=== PATIENT | male | born 1960 | race Caucasian/White ===

== ENCOUNTER 2016-06-17 05:47 | Inpatient (IN) | payer BC ==
--- NOTE | 2016-06-02 19:12 | HP ---
HISTORY AND PHYSICAL: DATE OF ADMISSION/SURGERY: 06/17/16 He is coming into the hospital 06/17/16 for a left total knee replacement. CHIEF COMPLAINT: Left knee pain. HISTORY OF PRESENT ILLNESS: This 56-year-old man has had left knee problems over the last couple of years. He has severe arthritis of the knee. It has been no longer responsive to nonoperative care and a left total knee replacement is recommended. He is cared for by Dr. Jonathon Clifton. PAST MEDICAL HISTORY: The patient's medical problems include hypertension, sleep apnea including a breathing device at night, insulin-dependent diabetes and he had bariatric surgery 3 months ago. Hi s weight is down from 280 in June 2015 and he is now 228, down 30 pounds since his bariatric lala jane. DAILY MEDICATIONS: 1. Losartan 100 mg each day. 2. Amlodipine 5 mg twice a day. 3. Thyroid replacement 150 mcg each day of the week and he does not take it on Thursday and Thursday. 4. Lantus insulin 20 units each day. ALLERGIES: No allergies. No history of heart attack, DVT, or pulmonary embolism. SOCIAL HISTORY: He is not a smoker. He did give up chewing tobacco recently. Minimal alcoholic con sumption. No bleeding tendencies. PHYSICAL EXAM: GENERAL: He is overweight, not acutely distressed. VITAL SIGNS: His height 5 feet 7 inch, weight 228 pounds. Blood pressure 146/82, the pulse is 73, respirations 19. HEENT: The head is NC/AT. LUNGS: Clear bilaterally. HEART: Regular, S1, S2, normal. No murmurs or gallops. EXTREMITIES: Left knee examination; varus, stable MCL and LCL, normal Bonnie, posterior drawer ext ension -2 degrees, flexion 95 degrees. Small effusion. The joint line is nontender medially and la terally. The knee is nontender anteriorly and posteriorly. The thigh and calf are soft. Neurovasc ularly the foot is intact. NEUROLOGIC: The cranial nerves are grossly intact. RADIOGRAPHIC REVIEW: The knee radiographs show that the left knee has severe medial arthritis with [id number] sclerosis, osteophyte formation. IMPRESSION: Severe arthritis of the left knee. PLAN: Left total knee replacement. The goals, risks, and complications of the surgical care were r eviewed by him today and he acknowledged these. [id number]/[facility] #: [id number]
[2016-06-17] MEDS ORDERED: Buffered Lidocaine 1% SYR 3ML* 3 ML/SYR SYRINGE INTRADERM ONE (06:00)
[2016-06-17] MEDS ORDERED: Famotidine IV* 10 MG/ML 2 ML (20 mg) IV ONE (06:00)
[2016-06-17] MEDS ORDERED: Metoclopramide IV* 5 MG/ML 2 ML VIAL IV SLOW PU ONE (06:00)
[2016-06-17] MEDS ORDERED: Buffered Lidocaine 1% SYR 3ML* 3 ML/SYR SYRINGE ONE (06:08)
[2016-06-17] MEDS ORDERED: ceFAZolin 2 GM PREMIX (*) 2 GM/50 ML BAG IVPB ONE (06:08)
[2016-06-17] MEDS ORDERED: Famotidine IV* 10 MG/ML 2 ML (20 mg) ONE (06:08)
[2016-06-17] MEDS ORDERED: Metoclopramide IV* 5 MG/ML 2 ML VIAL ONE (06:08)
[2016-06-17] MEDS ORDERED: Midazolam* 1 MG/ML 5 ML VIAL (5 MG) ONE (06:53)
[2016-06-17] MEDS ORDERED: fentaNYL* 50 MCG/ML 2 ML VIAL (100 MCG VIAL) ONE (06:53)
[2016-06-17] MEDS ORDERED: Morphine PF AMP (0.5MG/ML)* 5 MG/10 ML AMP ONE (06:54)
[2016-06-17] MEDS ORDERED: Dexmedetomidine* 200 MCG/2 ML 2 ML VIAL ONE (07:01)
[2016-06-17] MEDS ORDERED: Bupivacaine 0.5% SDV PF* 30 ML VIAL ONE (07:01)
[2016-06-17] MEDS ORDERED: Propofol* 10 MG/ML 20 ML BTL IV PUSH ONE ×2 (07:01→09:48)
[2016-06-17] MEDS ORDERED: fentaNYL* 50 MCG/ML 2 ML VIAL (100 MCG VIAL) IV PRN (07:12)
[2016-06-17] MEDS ORDERED: PROCHLORPERAZINE INJ 5 MG/ML 2 ML VIAL IV PRN ×2 (07:12→10:56)
[2016-06-17] MEDS ORDERED: Scopolamine 1.5 mg* PATCH TRANSDERM PRN (07:12)
[2016-06-17] MEDS ORDERED: Ondansetron INJ* 2 MG/ML VIAL IV PRN ×2 (07:12→10:56)
[2016-06-17] MEDS ORDERED: DiMENhydriNATE IV* 50 MG/ML VIAL IV PUSH PRN ×2 (07:12→10:56)
[2016-06-17] MEDS ORDERED: Bupivacaine 0.5% W/EPI SDV* 30 ML VIAL ONE (09:05)
[2016-06-17] MEDS ORDERED: Nalbuphine* 20 MG/ML 1 ML VIAL IV PRN (10:56)
[2016-06-17] MEDS ORDERED: Naloxone* 0.4 MG/ML 1 ML VIAL IV PRN (10:56)
[2016-06-17] MEDS ORDERED: Acetaminophen TAB* 325 MG PO PRN (10:57)
[2016-06-17] MEDS ORDERED: Polyethylene Glycol 3350* 17 GM PACKET PO PRN (11:04)
[2016-06-17] MEDS ORDERED: traZODone TAB* 50 MG TAB PO PRN (11:04)
[2016-06-17] MEDS ORDERED: Bisacodyl SUPP* 10 MG SUPP PR PRN (11:04)
--- NOTE | 2016-06-17 11:42 | RAD ---
INDICATION: Postop left total knee replacement COMPARISON: April 23, 2016 TECHNIQUE: 2 portable views were obtained. FINDINGS: There is left knee arthroplasty. Both femoral and tibial components appear well seated. There is a cooling jacket. There are anterior skin katalina. IMPRESSION: POSTOPERATIVE LEFT TOTAL KNEE REPLACEMENT
[2016-06-17] MEDS ORDERED: ceFAZolin 1 GM in Dextrose (*) 1 GM/50 ML BAG IVPB SCH (12:00)
[2016-06-17] MEDS ORDERED: Dextrose 50% Syringe 50 ML* 25 GM/50 ML SYRINGE IV PUSH PRN (13:41)
[2016-06-17] MEDS: diPHENhydraMINE IV* 50 MG/ML 1 ml VIAL (BENADRYL) IV PRN (15:09)
[2016-06-17] MEDS: ceFAZolin 1 GM in Dextrose (*) 1 GM/50 ML BAG IVPB SCH (15:43)
--- NOTE | 2016-06-17 17:32 | CONS ---
CONSULTATION REPORT: DATE OF CONSULT: 06/17/16 PRIMARY CARE PROVIDER: Dr. Clifton. REQUESTING PHYSICIAN FOR CONSULT: Dr. Maritns. MY ATTENDING PHYSICIAN WHILE IN THE HOSPITAL: Dr. Danielle Calle (report dictated by Jose Jaquez NP). REASON FOR CONSULT: Medical evaluation of comorbid medical problems and medical management. HISTORY OF PRESENT ILLNESS: I refer you to Dr. Martins's H and P for further details. In short, Mr. Coleman is a 56-year-old male patient who has a history of arthritis, hypertension, CASANDRA, diabetes, hypothyroidism, hyperlipidemia, and history of nephrolithiasis. He presented to the outpatient setting to Dr. Martins 's services as he has had persistent debilitating left knee pain and that he was failing conservative therapy. Ultimately, it was felt that he would benefit from replacement which he underwent today. He was evaluated in the postoperative setting. He said he is feeling well. His pain is controlled. He feels pain at the incision site only, but it is tolerable. He denies having any chest pain or shortness of breath. Says he does not feel nauseated. Says he is not having any abdominal pain. He denies having any lightheadedness. He says that he is feeling fairly well at this point in time. He denies any shortness of breath and denies any numbness or tingling in the lower extremities on the left side, but because of his medical complexity, the hospitalist service was asked to evaluate for consult. PAST MEDICAL HISTORY: Significant for: 1. Arthritis. 2. Hypertension. 3. CASANDRA. 4. Diabetes. 5. Hypothyroidism. 6. Hyperlipidemia. 7. Nephrolithiasis. PAST SURGICAL HISTORY: 1. He has had a left total knee replacement done today. 2. He has had a Christina-en-Y surgery done in January 2016. 3. Laparoscopic cholecystectomy. 4. He has had right and left knee arthroscopies. MEDICATIONS: Home medications according to the preop list obtained include: 1. Probiotic 1 tablet p.o. at bedtime. 2. Losartan 100 mg daily. 3. Synthroid 150 mcg daily. 4. Lantus 20 units subcu at bedtime. 5. Ibuprofen 800 mg p.o. take as directed. 6. Norvasc 5 mg p.o. b.i.d. ALLERGIES TO MEDICATIONS: Include no known drug allergies. FAMILY HISTORY: Mother had a history of pancreatic cancer. Father had a history of lung cancer. SOCIAL HISTORY: He does not smoke. He rarely drinks alcohol. He is , with children. Surrogate decision maker is his . REVIEW OF SYSTEMS: There is no documented fever. He denied having any significant weight change. There was no double vision. There is no ear discharge. He denies having any rhinorrhea. There is no sore throat. There is no thyroid enlargement. Denies having any chest pain. There is no orthopnea. No nocturnal dyspnea. There is no abdominal pain. He denies having any nausea or vomiting. He denies any dysuria, no frequency. No loss of consciousness. No pruritus. No skin ulcerations. Review of 14 systems completed, all others negative. PHYSICAL EXAM: Vital signs of blood pressure of 113/64, pulse 55, respirations 16, O2 sat 96%, temperature 96.8. General: At this time, Mr. Coleman is a 56- year-old male patient. He appears to be well nourished, well developed. He is sitting in the postoperative bed. He does not appear to be in any acute distress. HEENT: Head: Atraumatic, normocephalic. Eyes: EOMs intact. Sclerae are anicteric and not pale. Throat: Oral mucosa appears to be moist. No oropharyngeal erythema. Neck: Supple. Heart: Sounds S1, S2. Regular rate and rhythm. No murmurs, rubs, or gallops. Lungs: Clear to auscultation bilaterally. No wheezes, rales, or rhonchi. His abdomen was soft, flat. Bowel sounds hypoactive. Nontender. Extremities: Pulses 2+ throughout. Distal CSM checks intact in the left lower extremity. He can move his upper extremities with 5/5 strength. He has limited range of motion to the left leg and it is obviously the operative leg. Neurologically, he is awake, he is alert , and he is oriented x3. His tongue is midline. His endodontic assistant are equal. He had no gross focal deficits. His skin is intact. DIAGNOSTIC STUDIES/LAB DATA: His labs preoperative revealed WBC of 7.3, RBC of 4.96, hemoglobin 14.9, hematocrit of 44, platelet count of 250. INR was 0.98. Sodium 139, potassium 3.4, chloride of 101, bicarb 34, BUN 12, creatinine of 0.58, glucose 161. Chest x-ray showed no active cardiopulmonary disease. He had an EKG as well preop which showed a normal sinus rhythm, right bundle branch block. He did have a PVC noted. Old medical records were reviewed. ASSESSMENT AND PLAN: Mr. Coleman is a 56-year-old male patient coming into the orthopedic services for an elective left total knee. Hospitalist service was asked to evaluate in consult to help manage his other medical problems. Recommendations at this point are: 1. Status post left total knee replacement: I will defer the management of this to Dr. Martins and his team. 2. Osteoarthritis: Defer to his primary. Continue current medical regimen. 3. Hypertension: His blood pressure has been in the low 100s systolically. So , I am going to hold his losartan and amlodipine. We can reintroduce these slowly as needed. 4. Obstructive sleep apnea: Continue his CPAP. We will continue to do pulse ox overnight tonight. 5. Diabetes: We will continue lispro sliding scale. In addition to this, continue Lantus. 6. Hypothyroidism: Continue his Synthroid. 7. Hyperlipidemia: Continue current medical regimen. 8. History of nephrolithiasis: Not an active issue. Follow up with primary. 9. DVT prophylaxis: I will defer to the primary team. 10. Fluids, electrolytes, and nutrition: He can have a consistent carbohydrate diet. 11. Code status: Full code. TIME SPENT: On the admission was approximately 60 minutes; greater than half the time was spent [id number] with the patient obtaining my history and physical, other half the time spent going over the plan of care with the patient and implementing plan of care. I did discuss the plan of care with my attending, Dr. Calle; she is in agreement. JOSE JAQUEZ NP CC: Dr. Clifton; Dr. Martins* [id number]/[facility] #: [id number] [facility] HOSPITALShania
[2016-06-17] MEDS: Insulin LISPRO* 1 UNITS UNIT SUBCUT SCH (18:39)
[2016-06-17] MEDS: Ferrous Sulfate TAB* 325 MG PO SCH (20:06)
[2016-06-17] MEDS: Docusate CAP* 100 MG PO SCH (20:06)
[2016-06-17] MEDS: oxyCODONE/Acetamin 5/325 MG* TAB PO PRN (20:07)
[2016-06-17] MEDS: Lactobacillus Acidophilu (GG)* 1 CAP CAP PO SCH (20:07)
[2016-06-17] MEDS: Insulin GLARGINE(*) 1 UNITS UNIT SUBCUT SCH (20:09)
[2016-06-17] MEDS ORDERED: amLODIPine TAB* 5 MG PO SCH (21:00)
--- NOTE | 2016-06-18 00:34 | OP ---
DATE OF OPERATION: 06/17/16 - ROOM #346 DATE OF : 58 SURGICAL CARE: Left total knee replacement. SURGEON: Fabien Martins MD ASSISTANTS: 1. THI Sanchez - Grout Machine Operator. 2. Dottie Sethi, outboard technician. ANESTHESIOLOGIST: Dr. Salvador Bahena. ANESTHESIA: Left saphenous nerve block and spinal with Duramorph, IV sedation. PRE-OP DIAGNOSIS: Severe arthritis of the left knee. POST-OP DIAGNOSIS: Severe arthritis of the left knee. OPERATIVE PROCEDURE: Left total knee replacement. COMPONENTS UTILIZED: Paola Persona knee was utilized, a size 8 femur, a size E tibia, a 10 articular surface, and a 35 patella. COMPLICATIONS: There were no complications. DRAINS: Two blood collection drains in the left knee at the end of the case. BLOOD LOSS: 250 mL. REPLACEMENT: Crystalloid fluids. OPERATIVE INDICATIONS: Severe arthritis of the left knee, it is bone on bone medially. He has various malalignment. He has been nonresponsive to nonoperative care and a knee replacement was recommended. The patient's other medical problems include insulin-dependent diabetes, sleep apnea, hypertension, recent bariatric surgery, and thyroid replacement. DESCRIPTION OF PROCEDURE: The patient was brought to the operating room and placed on the operating room table in a supine position. Following the administration of the block on the left thigh and the spinal and a Galloway catheter was inserted, the left proximal thigh was wrapped with a tourniquet. The left leg was prepped from the tourniquet to the tips of the toes after a preliminary chlorhexidine prep of the thigh, knee, and leg. We did our universal protocol time-out, confirming José Miguel Jared and a plan for left total knee replacement. We all agreed and we proceeded. The skin incision went from 2 fingerbreadths proximal to superior pole of the patella to the medial aspect of the tibial tubercle. The skin and subcu divided down to the prepatellar bursa. The prepatellar bursa was traversed and the knee was then entered medial parapatellar dividing the quad tendon at the junction of the rectus femoris and the vastus medialis muscle, staying as close to the muscle as possible on the medial side. The knee had clear goldish synovial fluid. The anteromedial soft tissues on the tibia were divided down to the bone just medial to the tibial tubercle going from the joint line distally and the medial side was elevated subperiosteally going around to the deep MCL and into the posteromedial corner of the knee to affect some medial release. The remains of the anterior horn of the medial meniscus were excised. The infrapatellar fat pad was excised, the synovium around the patella was removed. The patient had complete eburnation of the medial femoral condyle, medial tibial plateau, large osteophytes, smaller osteophytes on the intercondylar notch which were excised. The ACL and PCL were uplifted from their femoral origins. The tibia was made so it could be subluxated forward from under the femur. The lateral meniscus was carefully excised, carefully staying out of the region of the lateral geniculate. The distal anterior femur was exposed subperiosteally for referencing and measuring after removing osteophytes from the superior trochlea. The proximal tibial cut was made first, our goal here was to have a tibial surface that would be perpendicular to the long axis of the tibia and have a slight posterior slope. The femoral intramedullary canal was opened with a drill. The canal was suctioned to discourage embolization and the femur was measured. The distal femoral cutting guide was applied with 6 degrees of valgus #1 for a small flexion contracture. This cut was completed. The femur was measured for an 8, and the anterior, posterior, and chamfering cuts were completed for the size 8 femur. At this point, we cleaned, finished removal of the posterior horn of the medial meniscus, the PCL, osteophytes on the medial femoral condyle, posterior horn of lateral meniscus, and great care was taken to preserve the MCL during this part of the case. Working posteriorly, careful hemostasis was checked and achieved. Once everything was cleaned out posteriorly, we had good ligamentous balance in 90 degrees of flexion and in full extension with a 10-mm block. The femur was completed with the intracondylar cut out for the size 8. The tibia was completed for a size E. The knee was articulated and extended with the E tibia , 10 articular surface and the 8 femur with full knee extension, stable ligaments in extension, nice knee alignment in extension, and stable ligaments in 90 degrees of flexion. The patella was cut flat, a 35 was chosen. Three drill holes were made, these were undercut and a lateral release was not necessary. A femoral plug was inserted after cleaning the femur x5-6 with saline and the plug ended up being too small and it was removed. The leg was then exsanguinated. The tourniquet elevated to 275. All the bony surfaces were cleaned down in extension, once again checking to see that we had hemostasis on the lateral geniculate. This was 2 to 3 L of pulse saline. The knee was then flexed, retractors were put into place and the bony surface was again cleaned with pulse saline, tibia, patella and femur. All surfaces were then dried. The cement was mixed and the components were cemented into position. The patella followed by the tibia followed by the femur, each was impacted. Excess cement was removed and the knee was articulated and extended during the final hardening. After this, once again, all excess cement was removed including some in the intercondylar notch and posteriorly. The tourniquet was deflated. Hemostasis checked and achieved utilizing electrocautery and careful hemostasis was achieved during closure. We irrigated several times with saline during closure as well. The pericapsular tissues were infiltrated with Marcaine 0.5% with epinephrine posteromedial, medial, anterolateral during closure as well. The quad mechanism closed with interrupted #1 Polysorbs in [id number] fashion. The same with the medial retinaculum. More distally we used 0 Polysorb. The drains were brought out superolateral, suprapatellar pouch. On the deep fascia and bursa, the 0 Polysorb was utilized and then on the superficial subcu, 3-0 Polysorb, and then katalina on the skin. The skin was washed and dried and covered with Betadine-soaked release followed by sterile gauze. The drains were dressed in the same manner and then sterile Webril. A cryotherapy cuff was applied followed by a couple of more ABD pads, further Webril and then a 6- inch Aj bandage loosely applied. The patient dorsalis pedis pulse was 2+ at the end of the case, and the patient was returned to the recovery room in stable and satisfactory condition, having tolerated the procedure very well. CC: Jonathon Clifton MD, [facility] * [id number]/[facility] #: [id number] MTDD
[2016-06-18] MEDS: ceFAZolin 1 GM in Dextrose (*) 1 GM/50 ML BAG IVPB SCH ×2 (00:45→08:00)
[2016-06-18] MEDS: oxyCODONE/Acetamin 5/325 MG* TAB PO PRN ×4 (00:47→21:40)
[2016-06-18] MEDS: diPHENhydraMINE IV* 50 MG/ML 1 ml VIAL (BENADRYL) IV PRN (02:50)
[2016-06-18] MEDS ORDERED: Ondansetron INJ* 2 MG/ML VIAL IV PRN (02:56)
[2016-06-18] MEDS ORDERED: oxyCODONE/Acetamin 5/325 MG* TAB PO PRN (02:56)
[2016-06-18] MEDS ORDERED: diPHENhydraMINE IV* 50 MG/ML 1 ml VIAL (BENADRYL) IV PRN (02:56)
[2016-06-18] MEDS: oxyCODONE TAB* 5 MG TAB PO PRN ×3 (04:30→17:13)
[2016-06-18] MEDS: Levothyroxine TAB* 150 MCG TAB PO SCH (06:08)
[2016-06-18 06:47] LABS: Hematocrit 33 % (42-52); Hemoglobin 11.6 g/dl (14.0-18.0); Mean Corpuscular HGB Conc 35 g/dl (31-36); Mean Corpuscular Hemoglobin 30 pg (27-31); Mean Corpuscular Volume 87 fL (80-94); Mean Platelet Volume 7 um3 (7.4-10.4); Red Blood Count 3.84 10^6/ul (4.0-5.4); Red Cell Distribution Width 14 % (10.5-15); White Blood Count 11.7 10^3/ul (3.5-10.8)
[2016-06-18 06:59] LABS: BUN/Creatinine Ratio 13.6 (8-20); Calcium 8.2 mg/dL (8.6-10.3); EGFR Non-African American 124.4 (>60); Potassium 2.9 mmol/L (3.5-5.0)
[2016-06-18] MEDS ORDERED: Magnesium Sulfate 2 GM IV* 2 GM/50 ML BAG IVPB ONE (07:36)
[2016-06-18] MEDS: Potassium Chlor TAB* 20 MEQ TAB.ER PO SCH ×3 (07:55→19:46)
[2016-06-18] MEDS: Insulin LISPRO* 1 UNITS UNIT SUBCUT SCH ×3 (07:57→17:24)
[2016-06-18] MEDS: Docusate CAP* 100 MG PO SCH ×2 (07:59→19:45)
[2016-06-18] MEDS: Aspirin TAB* 325 MG PO SCH (07:59)
[2016-06-18] MEDS: Ferrous Sulfate TAB* 325 MG PO SCH ×2 (07:59→19:45)
[2016-06-18] MEDS: Vitamin THERAPEUTIC TAB PO SCH (07:59)
[2016-06-18 08:18] LABS: Magnesium 1.6 mg/dL (1.9-2.7)
[2016-06-18] MEDS ORDERED: Losartan TAB* 25 MG PO SCH (09:00)
[2016-06-18 14:49] LABS: BUN/Creatinine Ratio 15.4 (8-20); Calcium 8.6 mg/dL (8.6-10.3); EGFR African American 162.8 (>60); EGFR Non-African American 126.6 (>60); Magnesium 1.9 mg/dL (1.9-2.7); Potassium 3.7 mmol/L (3.5-5.0)
--- NOTE | 2016-06-18 18:20 | PN ---
Subjective Date of Service: 06/18/16 Interval History: This is a 56 yo male who underwent L TKR by Dr Martins yesterday. Hospitalists have been asked to consult for medical co-management. Patient offers no acute complaints. His pain is well controlled. Working with PT. Denies abd pain, n/ v. Denies CP, SOB. Objective Active Medications: Acetaminophen (Tylenol Tab*) 650 mg PO Q4H PRN PRN Reason: PAIN OR TEMPERATURE Last Admin: 06/17/16 18:00 Dose: 650 mg Aspirin (Aspirin Tab*) 325 mg PO DAILY [facility] Last Admin: 06/18/16 07:59 Dose: 325 mg Bisacodyl (Dulcolax Supp*) 10 mg SC DAILY PRN PRN Reason: constipation Dextrose (D50w Syringe 50 Ml*) 12.5 gm IV PUSH .FOR FS < 60 - SS PRN PRN Reason: FS < 60 Diphenhydramine HCl (Benadryl Iv*) 25 mg IV Q6H PRN PRN Reason: itching Docusate Sodium (Colace Cap*) 100 mg PO BID [facility] Last Admin: 06/18/16 07:59 Dose: 100 mg Ferrous Sulfate (Ferrous Sulfate Tab*) 325 mg PO BID [facility] Last Admin: 06/18/16 07:59 Dose: 325 mg Lactated Ringer's (Lactated Ringers 1000 Ml Bag*) 1,000 mls @ 100 mls/hr IV PER RATE [facility] Last Admin: 06/17/16 15:02 Dose: 100 mls/hr Insulin Glargine (Lantus(*)) 20 units SUBCUT BEDTIME [facility] Last Admin: 06/17/16 20:09 Dose: 20 units Insulin Human Lispro (Humalog*) 0 units SUBCUT AC [facility] PRN Reason: Protocol Last Admin: 06/18/16 17:24 Dose: 6 unit Lactobacillus Rhamnosus (Culturelle*) 1 cap PO BEDTIME [facility] Last Admin: 06/17/16 20:07 Dose: 1 cap Lactulose (Lactulose*) 30 ml PO Q6H PRN PRN Reason: constipation Levothyroxine Sodium (Synthroid Tab*) 150 mcg PO 0600 [facility] Last Admin: 06/18/16 06:08 Dose: 150 mcg Magnesium Hydroxide (Milk Of Magnesia Liq*) 30 ml PO Q6H PRN PRN Reason: constipation Morphine Sulfate (Morphine Inj (Syringe)*) 2 mg IV Q2H PRN PRN Reason: PAIN Multivitamins (Theragran Tab*) 1 tab PO DAILY [facility] Last Admin: 06/18/16 07:59 Dose: 1 tab Ondansetron HCl (Zofran Inj*) 4 mg IV Q6H PRN PRN Reason: nausea Oxycodone HCl (Roxycodone Tab*) 10 mg PO Q4H PRN PRN Reason: PAIN - SEVERE Last Admin: 06/18/16 17:13 Dose: 10 mg Oxycodone/Acetaminophen (Percocet 5/325 Tab*) 1 tab PO Q4H PRN PRN Reason: PAIN Oxycodone/Acetaminophen (Percocet 5/325 Tab*) 2 tab PO Q4H PRN PRN Reason: PAIN Last Admin: 06/18/16 13:55 Dose: 2 tab Pharmacy Profile Note (Scopolomine Patch Remove*) 1 note PATCH OFF Q72H ONE Stop: 06/20/16 07:14 Polyethylene Glycol/Electrolytes (Miralax*) 17 gm PO DAILY PRN PRN Reason: Constipation Potassium Chloride (Klor Con Er Tab*) 20 meq PO TID [facility] Stop: 06/18/16 21:01 Last Admin: 06/18/16 13:50 Dose: 20 meq Potassium Chloride (Klor Con Er Tab*) 20 meq PO BID [facility] Trazodone HCl (Desyrel Tab*) 25 mg PO BEDTIME PRN PRN Reason: insomnia Vital Signs: Temp Pulse Resp BP Pulse Ox 99.9 F 98 18 153/82 96 06/18/16 16:01 06/18/16 16:01 06/18/16 17:13 06/18/16 16:01 06/18/16 16:01 Appearance: Well appearing, just finishing with PT Respiratory: Symmetrical Chest Expansion and Respiratory Effort, Clear to Auscultation Cardiovascular: NL Sounds; No Murmurs; No JVD, RRR Abdominal: NL Sounds; No Tenderness; No Distention Extremities: No Edema, - - R knee in brace and surgical dressing Neurological: Alert and Oriented x 3 Result Diagrams: 06/18/16 06:18 06/18/16 14:24 Assess/Plan/Problems-Billing Assessment: This is a 56 yo male with a h/o HTN, CASANDRA, IDDM, hypothyroidism, HLD who is s/p L TKR. Hospitalist group has been consulted for medical comanagement. - Patient Problems (1) Status post total knee replacement Comment: Management per ortho including pain control, DVT prophylaxis and discharge planning (2) Hypokalemia Comment: Replaced orally Repeat labs show improvement Will repeat BMP in am (3) Hypomagnesemia Comment: Replaced IV, repeat labs normal (4) Hypertension Comment: Resume losartan and amlodipine in am (5) Insulin dependent diabetes mellitus Comment: Continue home Lantus dose and cover hyperglycemia with additional SS Humalog (6) Hypothyroidism Comment: Cont levothyroxine (7) Hyperlipidemia Status and Disposition: Discharge planning per ortho surgery. No acute medical concerns. Hospitalist group will continue to follow along.
[2016-06-18] MEDS: Lactobacillus Acidophilu (GG)* 1 CAP CAP PO SCH (19:45)
[2016-06-18] MEDS: Insulin GLARGINE(*) 1 UNITS UNIT SUBCUT SCH (19:46)
[2016-06-18] MEDS: Morphine INJ* 2 MG/ML 1 ML CARPUJECT IV PRN (19:48)
[2016-06-19] MEDS: oxyCODONE TAB* 5 MG TAB PO PRN ×3 (03:00→21:26)
[2016-06-19] MEDS: Levothyroxine TAB* 150 MCG TAB PO SCH (05:30)
[2016-06-19] MEDS: oxyCODONE/Acetamin 5/325 MG* TAB PO PRN ×3 (06:42→17:08)
[2016-06-19] MEDS: Magnesium Hydroxide LIQ* 30 ML UDC PO PRN ×2 (06:43→22:31)
[2016-06-19 07:31] LABS: Hematocrit 36 % (42-52); Hemoglobin 12.6 g/dl (14.0-18.0)
[2016-06-19 07:37] LABS: BUN/Creatinine Ratio 13.8 (8-20); Calcium 8.9 mg/dL (8.6-10.3); EGFR African American 162.8 (>60); EGFR Non-African American 126.6 (>60); Magnesium 1.9 mg/dL (1.9-2.7); Potassium 3.1 mmol/L (3.5-5.0)
[2016-06-19] MEDS: Insulin LISPRO* 1 UNITS UNIT SUBCUT SCH ×3 (08:23→17:16)
[2016-06-19] MEDS: Vitamin THERAPEUTIC TAB PO SCH (08:24)
[2016-06-19] MEDS: Docusate CAP* 100 MG PO SCH ×2 (08:24→21:26)
[2016-06-19] MEDS: Losartan TAB* 25 MG PO SCH (08:24)
[2016-06-19] MEDS: amLODIPine TAB* 5 MG PO SCH (08:24)
[2016-06-19] MEDS: Potassium Chlor TAB* 20 MEQ TAB.ER PO SCH ×2 (08:24→21:27)
[2016-06-19] MEDS: Ferrous Sulfate TAB* 325 MG PO SCH ×2 (08:24→21:27)
[2016-06-19] MEDS: Aspirin TAB* 325 MG PO SCH (08:24)
--- NOTE | 2016-06-19 16:45 | PN ---
Subjective Date of Service: 06/19/16 Interval History: Patient offers no new complaints. Pain is fairly well controlled. Continuing to do well with PT. No CP, SOB, abd pain, n/v. Objective Active Medications: Acetaminophen (Tylenol Tab*) 650 mg PO Q4H PRN PRN Reason: PAIN OR TEMPERATURE Last Admin: 06/17/16 18:00 Dose: 650 mg Amlodipine Besylate (Norvasc Tab*) 5 mg PO DAILY [facility] Last Admin: 06/19/16 08:24 Dose: 5 mg Aspirin (Aspirin Tab*) 325 mg PO DAILY [facility] Last Admin: 06/19/16 08:24 Dose: 325 mg Bisacodyl (Dulcolax Supp*) 10 mg CO DAILY PRN PRN Reason: constipation Dextrose (D50w Syringe 50 Ml*) 12.5 gm IV PUSH .FOR FS < 60 - SS PRN PRN Reason: FS < 60 Diphenhydramine HCl (Benadryl Iv*) 25 mg IV Q6H PRN PRN Reason: itching Docusate Sodium (Colace Cap*) 100 mg PO BID [facility] Last Admin: 06/19/16 08:24 Dose: 100 mg Ferrous Sulfate (Ferrous Sulfate Tab*) 325 mg PO BID [facility] Last Admin: 06/19/16 08:24 Dose: 325 mg Lactated Ringer's (Lactated Ringers 1000 Ml Bag*) 1,000 mls @ 100 mls/hr IV PER RATE [facility] Last Admin: 06/17/16 15:02 Dose: 100 mls/hr Insulin Glargine (Lantus(*)) 25 units SUBCUT BEDTIME [facility] Insulin Human Lispro (Humalog*) 0 units SUBCUT AC [facility] PRN Reason: Protocol Last Admin: 06/19/16 12:14 Dose: 3 unit Lactobacillus Rhamnosus (Culturelle*) 1 cap PO BEDTIME [facility] Last Admin: 06/18/16 19:45 Dose: 1 cap Lactulose (Lactulose*) 30 ml PO Q6H PRN PRN Reason: constipation Last Admin: 06/19/16 14:18 Dose: 30 ml Levothyroxine Sodium (Synthroid Tab*) 150 mcg PO 0600 [facility] Last Admin: 06/19/16 05:30 Dose: 150 mcg Losartan Potassium (Cozaar Tab*) 100 mg PO DAILY [facility] Last Admin: 06/19/16 08:24 Dose: 100 mg Magnesium Hydroxide (Milk Of Magnesia Liq*) 30 ml PO Q6H PRN PRN Reason: constipation Last Admin: 06/19/16 06:43 Dose: 30 ml Morphine Sulfate (Morphine Inj (Syringe)*) 2 mg IV Q2H PRN PRN Reason: PAIN Last Admin: 06/18/16 19:48 Dose: 2 mg Multivitamins (Theragran Tab*) 1 tab PO DAILY [facility] Last Admin: 06/19/16 08:24 Dose: 1 tab Ondansetron HCl (Zofran Inj*) 4 mg IV Q6H PRN PRN Reason: nausea Oxycodone HCl (Roxycodone Tab*) 10 mg PO Q4H PRN PRN Reason: PAIN - SEVERE Last Admin: 06/19/16 09:36 Dose: 10 mg Oxycodone/Acetaminophen (Percocet 5/325 Tab*) 1 tab PO Q4H PRN PRN Reason: PAIN Oxycodone/Acetaminophen (Percocet 5/325 Tab*) 2 tab PO Q4H PRN PRN Reason: PAIN Last Admin: 06/19/16 12:06 Dose: 2 tab Pharmacy Profile Note (Scopolomine Patch Remove*) 1 note PATCH OFF Q72H ONE Stop: 06/20/16 07:14 Polyethylene Glycol/Electrolytes (Miralax*) 17 gm PO DAILY PRN PRN Reason: Constipation Potassium Chloride (Klor Con Er Tab*) 20 meq PO BID [facility] Last Admin: 06/19/16 08:24 Dose: 20 meq Trazodone HCl (Desyrel Tab*) 25 mg PO BEDTIME PRN PRN Reason: insomnia Vital Signs: Temp Pulse Resp BP Pulse Ox 98.2 F 87 20 124/71 99 06/19/16 15:32 06/19/16 15:32 06/19/16 15:32 06/19/16 15:32 06/19/16 16:00 Appearance: Well appearing, NAD Respiratory: Symmetrical Chest Expansion and Respiratory Effort, Clear to Auscultation Cardiovascular: NL Sounds; No Murmurs; No JVD, RRR Abdominal: NL Sounds; No Tenderness; No Distention Extremities: No Edema Skin: No Rash or Ulcers Neurological: Alert and Oriented x 3 Result Diagrams: 06/19/16 06:40 06/19/16 06:40 Assess/Plan/Problems-Billing Assessment: This is a 56 yo male with a h/o HTN, CASANDRA, IDDM, hypothyroidism, HLD who is s/p L TKR. Hospitalist group has been consulted for medical comanagement. - Patient Problems (1) Status post total knee replacement Comment: Management per ortho including pain control, DVT prophylaxis and discharge planning (2) Hypokalemia Comment: Replaced orally yesterday, labs show hyperkalemia again this am Continue oral supplementation, Mg has been replaced He may require chronic supplementation following discharge, perhaps due to malabsorption following his recent Christina en Y Asymptomatic (3) Hypomagnesemia Comment: Replaced IV, repeat labs normal (4) Hypertension Comment: Home antihypertensives have been resumed (5) Insulin dependent diabetes mellitus Comment: Noted moderate hyperglycemia, will increase Lantus to 25U nightly and continue additional SS Humalog Will also check a HgbA1c (6) Hypothyroidism Comment: Cont levothyroxine (7) Hyperlipidemia (8) History of Christina-en-Y gastric bypass Status and Disposition: Discharge planning per ortho surgery. No acute medical concerns. Hospitalist group will continue to follow along.
[2016-06-19] MEDS ORDERED: Insulin GLARGINE(*) 1 UNITS UNIT SUBCUT SCH (21:00)
[2016-06-19] MEDS: Lactobacillus Acidophilu (GG)* 1 CAP CAP PO SCH (21:27)
[2016-06-20] MEDS: oxyCODONE/Acetamin 5/325 MG* TAB PO PRN ×3 (00:59→12:08)
[2016-06-20] MEDS: Morphine INJ* 2 MG/ML 1 ML CARPUJECT IV PRN (00:59)
[2016-06-20] MEDS: oxyCODONE TAB* 5 MG TAB PO PRN (03:37)
[2016-06-20] MEDS: Levothyroxine TAB* 150 MCG TAB PO SCH (06:14)
[2016-06-20 07:03] LABS: Hematocrit 32 % (42-52)
[2016-06-20] MEDS ORDERED: Scopolamine PATCH Remove* 1 NOTE MISC PATCH OFF ONE (07:13)
[2016-06-20 07:18] LABS: Calcium 8.6 mg/dL (8.6-10.3); EGFR African American 182.1 (>60); EGFR Non-African American 141.6 (>60); Magnesium 2.2 mg/dL (1.9-2.7); Potassium 3.2 mmol/L (3.5-5.0)
[2016-06-20 07:58] VITALS: BP 138/72
[2016-06-20] MEDS: Losartan TAB* 25 MG PO SCH (08:13)
[2016-06-20] MEDS: Ferrous Sulfate TAB* 325 MG PO SCH (08:14)
[2016-06-20] MEDS: amLODIPine TAB* 5 MG PO SCH (08:14)
[2016-06-20] MEDS: Docusate CAP* 100 MG PO SCH (08:14)
[2016-06-20] MEDS: Potassium Chlor TAB* 20 MEQ TAB.ER PO SCH (08:14)
[2016-06-20] MEDS: Aspirin TAB* 325 MG PO SCH (08:14)
[2016-06-20] MEDS: Vitamin THERAPEUTIC TAB PO SCH (08:14)
[2016-06-20] MEDS: Insulin LISPRO* 1 UNITS UNIT SUBCUT SCH (08:17)
[2016-06-20] MEDS ORDERED: Potassium Chlor TAB* 20 MEQ TAB.ER PO ONE (09:05)
--- NOTE | 2016-06-20 09:23 | PN ---
Progress Note - Progress Note SOAP: Subjective: POD #3 Left TKA. Doing well, pain controlled with meds. Has not had BM yet. Denies CP/SOB or calf pain Objective: Vitals: Temp Pulse Resp BP Pulse Ox 98.6 F 91 18 138/72 98 02/03/17 07:40 02/08/01 07:40 02/08/01 07:40 /08/01 07:40 /08/01 07:40 Gen: A&O x3, NAD at rest LLE: Incision C/D/I with katalina. Mild edema, no erythema or ecchymosis. +f/e at ankle, MTPs. Sensation intact. DP 2+ Labs: Laboratory Results - last 24 hr // 02//04 07/07/04 06:40 12:05 17:10 Hgb Hct Sodium Potassium Chloride Carbon Dioxide Anion Gap BUN Creatinine Est GFR ( Amer) Est GFR (Non-Af Amer) BUN/Creatinine Ratio Glucose POC Glucose (mg/dL) 163 H 195 H Hemoglobin A1c 6.9 H Calcium Magnesium 02/17 06/20/06/20/16 06:42 06:42 07:36 Hgb 11.0 L Hct 32 L Sodium 132 L Potassium 3.2 L Chloride 95 L Carbon Dioxide 30 Anion Gap 7 BUN 13 Creatinine 0.59 L Est GFR ( Amer) 182.1 Est GFR (Non-Af Amer) 141.6 BUN/Creatinine Ratio 22.0 H Glucose 178 H POC Glucose (mg/dL) 189 H Hemoglobin A1c Calcium 8.6 Magnesium 2.2 Assessment: POD #3 Left TKA Plan: D/C home today Continue ASA 325mg q day for DVT ppx Continue Percocet prn pain, Colace prn constipation F/u with Dr. Martins 6 weeks
--- NOTE | 2016-06-20 15:03 | PN ---
Hospitalist Progress Note Patient was discharged by orthopedic group this morning prior to evaluation from Hospitalist group. Reviewed morning labs, vitals and nursing notes. Discussed discharge recommendations with primary nurse. Recommend he is discharged with potassium supplementation and repeat BMP on Mon or Tue to follow up with his PCP. Laboratory Results - last 24 hr 06/19/16 06/19/16 06/20/16 06:40 17:10 06:42 Hgb 11.0 L Hct 32 L Sodium Potassium Chloride Carbon Dioxide Anion Gap BUN Creatinine Est GFR ( Amer) Est GFR (Non-Af Amer) BUN/Creatinine Ratio Glucose POC Glucose (mg/dL) 195 H Hemoglobin A1c 6.9 H Calcium Magnesium 06/20/16 06/20/16 06:42 07:36 Hgb Hct Sodium 132 L Potassium 3.2 L Chloride 95 L Carbon Dioxide 30 Anion Gap 7 BUN 13 Creatinine 0.59 L Est GFR ( Amer) 182.1 Est GFR (Non-Af Amer) 141.6 BUN/Creatinine Ratio 22.0 H Glucose 178 H POC Glucose (mg/dL) 189 H Hemoglobin A1c Calcium 8.6 Magnesium 2.2 Vital Signs: Temp Pulse Resp BP Pulse Ox 98.6 F 91 16 138/72 98 06/20/16 07:40 06/20/16 07:40 06/20/16 12:08 06/20/16 07:40 06/20/16 07:40 Home Medications Medication Instructions Recorded Confirmed Type Amlodipine Besylate [Norvasc-] 5 mg PO BID 06/02/16 06/17/16 History Ibuprofen TAB* [Advil TAB*] 800 mg PO SEE INSTRUCTIONS PRN 06/02/16 06/17/16 History Insulin Glargine [Lantus] 20 unit SUBCUT BEDTIME 06/02/16 06/17/16 History Levothyroxine TAB* [Synthroid 150 150 mcg PO QAM 06/02/16 06/17/16 History MCG TAB*] Losartan Potassium 100 mg PO QAM 06/02/16 06/17/16 History Probiotic Product [Probiotic] 1 tab PO BEDTIME 06/02/16 06/17/16 History
--- NOTE | 2016-07-11 08:25 | DS ---
DISCHARGE SUMMARY: DATE OF ADMISSION: 06/17/16 DATE OF DISCHARGE: 06/20/16 FINAL DIAGNOSIS: Severe arthritis of the left knee, surgical care on 06/17/16, left total knee replacement. SECONDARY DIAGNOSES: 1. Acute blood loss anemia. 2. Hypertension. 3. Hypothyroidism. 4. Hypokalemia. PRESENT ILLNESS: Severe arthritis to the left knee, increasing pain and disability over the last couple of years has been no longer responsive to nonoperative care and left total knee replacement was recommended. The patient recently had a cold, no fevers, and he came in to the hospital on amoxicillin 875 mg p.o. b.i.d. Other medications: Losartan 100 mg a day, amlodipine 5 mg twice a day, thyroid replacement 150 mcg each day of the week (and he does not take it on Thursday and Thursday), Latus insulin 20 units each day. Insulin- dependent diabetes. ADMITTING EXAMINATION: Well-nourished, well-developed, not acutely distressed. Lungs: Clear. Heart: Regular. No murmurs or gallops. Left knee varus, stable, nontender. Neurovascular to the foot was intact. The surgical care was done on 06/17/16. Postoperatively, his hematocrit went to 33% and then 36%. His potassium was noted to be 2.9, and potassium replacement was given throughout the hospitalization. Hospital course was not complicated. He mobilized with total knee rehab protocol. His surgical care was looked at and checked on on 06/19/16 and was satisfactory. Drains were removed on the first postoperative day. He was discharged home in stable condition on 06/20/16 to be taking aspirin 325 mg a day for 3 weeks, using a walker and then a cane, and office followup in 4 to 6 weeks and as necessary. CC: Dr. Jonathon Clifton, [facility] [id number]/[facility] #: [id number] LISA
== END 2016-06-20 12:10 | disposition home health service (06) | DRG 302 ==
LOC: AA 05:47 → SSU 10:57
PROVIDERS: ADMIT Orthopaedic Surgery; ATTEND Orthopaedic Surgery
PROC: 0SRD0J9 Replacement of Left Knee Joint with Synthetic Substitute, Cemented, Open Approach (ICD-10-PCS; 2016-06-17)
PROC: 30233H0 Transfusion of Autologous Whole Blood into Peripheral Vein, Percutaneous Approach (ICD-10-PCS; principal; 2016-06-17 07:30)
DX: M17.12 Unilateral primary osteoarthritis, left knee (principal); D62 Acute posthemorrhagic anemia; I10 Essential (primary) hypertension; E11.9 Type 2 diabetes mellitus without complications; E66.3 Overweight; Z68.35 Body mass index [BMI] 35.0-35.9, adult; G47.33 Obstructive sleep apnea (adult) (pediatric); E03.9 Hypothyroidism, unspecified; E87.6 Hypokalemia; E83.42 Hypomagnesemia; E78.5 Hyperlipidemia, unspecified; Z98.84 Bariatric surgery status; Z72.89 Other problems related to lifestyle; Z87.891 Personal history of nicotine dependence; Z87.442 Personal history of urinary calculi; Z90.49 Acquired absence of other specified parts of digestive tract; Z80.0 Family history of malignant neoplasm of digestive organs; Z80.1 Family history of malignant neoplasm of trachea, bronchus and lung; R50.9 Fever, unspecified
CPT/HCPCS: 36415; 80048; 83036; 83735; 85014; 85018; 85025; 88305; 88311; 94760; A9270-GY; C1776; J0690; J1200; J2250; J2270; J2704; J2765; J3010; J3475

== ENCOUNTER 2017-08-29 08:39 | Emergency (ER) | payer BC ==
[2017-08-29 08:51] VITALS: BP 169/87
[2017-08-29] MEDS ORDERED: Tetracaine 0.5% OPTH.SOL 4 ML* 1 DROP BTL ONE (09:22)
[2017-08-29] MEDS ORDERED: BSS OPTH.SOL* BTL OPHTHALMIC ONE (09:22)
[2017-08-29] MEDS ORDERED: Fluorescein Sod TOPICAL 0.6* 0.6 MG TEST OPHTHALMIC ONE (09:22)
--- NOTE | 2017-08-29 09:41 | UC ---
Eye Complaint HPI - HPI Summary HPI Summary: Patient to urgent care with 1 week complaints of feeling like he has a foreign body in his right eye patient has noted redness in his eye and some clear drainage - History of Current Complaint Chief Complaint: UCEye Stated Complaint: FB IN EYE Time Seen by Provider: 08/29/17 08:48 Hx Obtained From: Patient Onset/Duration: Gradual Onset, Lasting Weeks - 1, Still Present Timing: Constant Severity Initially: Mild Severity Currently: Mild Pain Intensity: 4 Pain Scale Used: 0-10 Numeric Location of Injury: Conjunctiva - Conjunctivae injected in his right eye Character: Foreign Body Sensation Aggravating Factor(s): Nothing Alleviating Factor(s): Nothing Associated Signs And Symptoms: Positive: Drainage (Clear) - Allergies/Home Medications Allergies/Adverse Reactions: Allergies Allergy/AdvReac Type Severity Reaction Status Date / Time No Known Allergies Allergy Verified 08/29/17 08:51 Home Medications: Home Medications metFORMIN* [Glucophage 500 MG TAB *] 500 mg PO BID 08/29/17 [History Confirmed 08/29/17] PMH/Surg Hx/FS Hx/Imm Hx Previously Healthy: No Endocrine History: Diabetes, Hypothyroidism Cardiovascular History: Hypertension - Surgical History Surgical History: Yes Surgery Procedure, Year, and Place: 1962 T&A. [place]. [place]ILICAL [place]IA [place]. LEFT KNEE x2 [facility] - Family History Known Family History: Positive: None - Social History Occupation: Employed Full-time Lives: With Family Alcohol Use: Occasionally Alcohol Amount: FEW DRINKS/MONTH Substance Use Type: None Smoking Status (MU): Never Smoked Tobacco Amount Used/How Often: DAILY Have You Smoked in the Last Year: No - Immunization History Most Recent Influenza Vaccination: 2014 Most Recent Tetanus Shot: UNKNOWN Most Recent Pneumonia Vaccination: 2016 Review of Systems Constitutional: Negative Skin: Negative Eyes: Eye Redness - OD ENT: Negative Respiratory: Negative Cardiovascular: Negative Gastrointestinal: Negative Genitourinary: Negative Motor: Negative Neurovascular: Negative Musculoskeletal: Negative Neurological: Negative Psychological: Negative Is Patient Immunocompromised?: No All Other Systems Reviewed And Are Negative: Yes Physical Exam Triage Information Reviewed: Yes Appearance: Well-Appearing, No Pain Distress, Well-Nourished Vital Signs: Initial Vital Signs Temp 97.7 F 08/29/17 08:48 Pulse 75 08/29/17 08:48 Resp 16 08/29/17 08:48 BP 169/87 08/29/17 08:48 Pulse Ox 100 08/29/17 08:48 Vital Signs Reviewed: Yes Eye Exam: Normal Eyes: Positive: Conjunctiva Clear - left, Conjunctiva Inflamed - right ENT Exam: Normal ENT: Positive: Normal ENT inspection, Hearing grossly normal, Uvula midline. Negative: Nasal congestion, Trismus, Muffled voice, Hoarse voice Dental Exam: Normal Neck exam: Normal Neck: Positive: Supple, Nontender, No Lymphadenopathy Respiratory Exam: Normal Respiratory: Positive: Chest non-tender, Lungs clear, Normal breath sounds, No respiratory distress, No accessory muscle use Cardiovascular Exam: Normal Cardiovascular: Positive: RRR, No Murmur, Pulses Normal, Brisk Capillary Refill Musculoskeletal Exam: Normal Musculoskeletal: Positive: Strength Intact, ROM Intact, No Edema Neurological Exam: Normal Neurological: Positive: Alert, Muscle Tone Normal Psychological Exam: Normal Skin Exam: Normal Re-Evaluation - Re-Evaluation First Eval Change: Unchanged - right eye stained with fluorescein stain. No evidence of abrasion to the cornea. Eyelids were flipped no evidence of foreign bodies Eye Complaint Course/Dx - Course Course Of Treatment: Cipro eyedrops 2 drops right eye every 4 hours while awake follow-up with Dr. Dietrich - Differential Dx/Diagnosis Provider Diagnoses: Conjunctivitis right eye, hypertension in poor control Discharge - Sign-Out/Discharge Documenting (check all that apply): Discharge - Discharge Plan Condition: Stable Disposition: HOME Prescriptions: Ciprofloxacin 0.3% OPTH.VALERIE* [Cipro 0.3% Opth*] 2 drop RIGHT EYE Q4H #1 btl Patient Education Materials: Hypertension (ED), Conjunctivitis (ED) Referrals: Jonathon Clifton MD [Primary Care Provider] - 2 Weeks Alex Dietrich MD [Medical Doctor] - 3 Days Additional Instructions: If symptoms have not resolved in 3 days follow up with Dr. patel-and he will further advice treatment - Billing Disposition and Condition Condition: STABLE Disposition: HOME
== END 2017-08-29 09:45 | disposition home or self-care (01) ==
LOC: UCEAST 08:39
DX: H10.31 Unspecified acute conjunctivitis, right eye (principal); I10 Essential (primary) hypertension; E11.9 Type 2 diabetes mellitus without complications; Z79.84 Long term (current) use of oral hypoglycemic drugs; E03.9 Hypothyroidism, unspecified
CPT/HCPCS: 99212; A9270-GY; G0463

== ENCOUNTER 2017-10-30 12:56 | Emergency (ER) | payer BC ==
--- NOTE | 2017-10-30 15:14 | RAD ---
INDICATION: Sliver in palm of LEFT hand with swelling 2 weeks ago. COMPARISON: No relevant prior exams available on the [facility] PACS for comparison. TECHNIQUE: AP and lateral hand views LEFT hand. REPORT: No conspicuous foreign body or subcutaneous emphysema. Mild diffuse soft tissue swelling. Negative for fracture, malalignment, periosteal reaction, or suspicious focal osseous lesions. No significant arthropathic change evident. Vascular calcifications. IMPRESSION: No conspicuous foreign body evident.
[2017-10-30 15:37] VITALS: BP 152/84
--- NOTE | 2017-10-30 18:24 | UC ---
Zhang Boykin Jade, scribed for Michelet Cardenas MD on 10/30/17 at 1512 . Skin Complaint HPI - HPI Summary HPI Summary: Pt is a 57 y/o male who presents to [facility] c/o left hand lesion. He states he first noticed it two weeks ago, and it appeared as a water blister with a black point. Pt believed there was a metal sliver inside his hand, and tried to remove it, at which point the lesion started to bleed. He denies any pus. Pt put drying salve on the wound today. - History of Current Complaint Chief Complaint: UCSkin Time Seen by Provider: 10/30/17 14:42 Stated Complaint: SKIN ISSUE Hx Obtained From: Patient Onset/Duration: Lasting Weeks - 2 weeks ago, Still Present Current Severity: None Pain Intensity: 0 Pain Scale Used: 0-10 Numeric Location: Hand (Left) - Palm Character: Raised Aggravating Factor(s): Other - Attempting to remove metal sliver Alleviating Factor(s): OTC Creams/Salves - Drying - Allergy/Home Medications Allergies/Adverse Reactions: Allergies Allergy/AdvReac Type Severity Reaction Status Date / Time No Known Allergies Allergy Verified 10/30/17 13:27 Review of Systems Constitutional: Other - NEGATIVE: fever Skin: Other - Left hand lesion All Other Systems Reviewed And Are Negative: Yes PMH/Surg Hx/FS Hx/Imm Hx Endocrine History: Diabetes Cardiovascular History: Hypertension - Surgical History Surgical History: Yes Surgery Procedure, Year, and Place: 1962 T&A. [place]. [place]ICAL [place]. LEFT KNEE x2 [place] - Family History Known Family History: Positive: Diabetes, Other - Cancer - Social History Alcohol Use: Occasionally Alcohol Amount: FEW DRINKS/MONTH Substance Use Type: None Smoking Status (MU): Never Smoked Tobacco Amount Used/How Often: DAILY Have You Smoked in the Last Year: No - Immunization History Most Recent Influenza Vaccination: 2015 Most Recent Tetanus Shot: UNKNOWN Most Recent Pneumonia Vaccination: 2016 Physical Exam - Summary Physical Exam Summary: General: well-appearing, no pain distress Skin: warm, color reflects adequate perfusion, dry. 1 cm raised lesion, shaped as a dome with a rim, on the proximal left palm. No erythema. No drainage. Head: normal Eyes: EOMI, NELY ENT: normal Neck: supple, nontender Respiratory: CTA, breath sounds present Cardiovascular: RRR Abdomen: soft, nontender Bowel: present Musculoskeletal: normal, strength/ROM intact Neurological: sensory/motor intact, A&O x3 Psychological: affect/mood appropriate Triage Information Reviewed: Yes Vital Signs: Initial Vital Signs Temp 97.8 F 10/30/17 13:23 Pulse 58 10/30/17 13:23 Resp 16 10/30/17 13:23 BP 142/84 10/30/17 13:23 Pulse Ox 98 10/30/17 13:23 Vital Signs Reviewed: Yes Diagnostics - Radiology Hand XR Xray Interpretation: No Acute Changes - No conspicuous foreign body evident. physician reviewed radiology report. Radiology Interpretation Completed By: Radiologist Course/Dx - Course Course Of Treatment: DISCUSED PYOGENIC GRANULOMA WITH PATIENT. F/U WITH DERM. - Diagnoses Provider Diagnoses: LEFT HAND PYOGENIC GRANULOMA Discharge - Sign-Out/Discharge Documenting (check all that apply): Discharge/Admit/Transfer - Discharge - Discharge Plan Condition: Stable Disposition: HOME Referrals: Jonathon Clifton MD [Primary Care Provider] - Additional Instructions: FOLLOW UP WITH YOUR PRIMARY CARE DOCTOR AND DERMATOLOGY FOR YOUR PYOGENIC GRANULOMA. GET RECHECKED FOR ANY WORSENING OF YOUR CONDITION OR QUESTIONS OR CONCERNS. - Billing Disposition and Condition Condition: STABLE Disposition: Home The documentation as recorded by the Zhang pascal Jade accurately reflects the service I personally performed and the decisions made by me, Michelet Cardenas MD.
== END 2017-10-30 16:00 | disposition home or self-care (01) ==
LOC: UCEAST 12:56
DX: L98.0 Pyogenic granuloma (principal); E11.9 Type 2 diabetes mellitus without complications; Z79.4 Long term (current) use of insulin; Z79.84 Long term (current) use of oral hypoglycemic drugs; I10 Essential (primary) hypertension; Z83.3 Family history of diabetes mellitus; Z80.9 Family history of malignant neoplasm, unspecified
CPT/HCPCS: 99211; G0463